=== PATIENT | male | born 1950 | race Caucasian/White ===

== ENCOUNTER 2017-09-24 14:35 | Emergency (ER) | payer OTHER ==
[~2017-09-24] VITALS: Ht 170.2 cm; Wt 66.0 kg
[2017-09-24 14:43] VITALS: BP 109/79
[2017-09-24] MEDS ORDERED: OMEP40CA34 PO (14:49)
[2017-09-24] MEDS ORDERED: LORA2TAB2 PO (14:49)
[2017-09-24] MEDS ORDERED: TEMA30CA PO (14:49)
== END 2017-09-24 16:30 | disposition left against medical advice (07) ==
LOC: ER 14:35
DX: R10.9 Unspecified abdominal pain (principal); Z53.21 Procedure and treatment not carried out due to patient leaving prior to being seen by health care provider